=== PATIENT | male | born 1955 | race Caucasian/White ===

== ENCOUNTER 2018-06-01 09:21 | Inpatient (IN) | payer OTHER ==
[2018-06-01 10:32] LABS: ADD MAN DIFF? NO
[2018-06-01] MEDS: NITROGLYCERIN 2% 1 GM OINT PKT TD (10:34)
[2018-06-01] MEDS: ASPIRIN (EC) 81 MG TAB PO (10:34)
[2018-06-01] MEDS: ONDANSETRON 4 MG INJ IV ×3 (10:34→20:43)
[2018-06-01] MEDS: morphine 4 MG/ML VIAL IV ×2 (10:34→18:29)
[2018-06-01 10:41] LABS: BASOPHILS % 0.6 % (0.0-2.0); EOSINOPHILS # 0.1 10^3/ul (0.0-0.5); EOSINOPHILS % 1.8 % (0.0-7.0); HEMATOCRIT 46.5 % (42.0-52.0); HEMOGLOBIN 16.1 g/dl (14.0-18.0); LYMPHOCYTES % 43.5 % (15.0-51.0); MEAN CORPUSCULAR HEMOGLOBIN 32.9 pg (29.0-33.0); MEAN CORPUSCULAR HGB CONC 34.6 g/dl (32.0-37.0); MEAN CORPUSCULAR VOLUME 95.1 fl (82.0-101.0); MONOCYTE # 0.5 10^3/ul (0.3-0.9); MONOCYTES % 6.6 % (0.0-11.0); NEUTROPHIL # 3.2 10^3/ul (1.6-7.5); NEUTROPHILS % 47.2 % (39.0-77.0); PLATELET COUNT 282 10^3/UL (140-415); RED BLOOD COUNT 4.89 10^6/ul (4.70-6.10); RED CELL DISTRIBUTION WIDTH 11.9 % (11.5-14.5)
[2018-06-01 10:41] LABS: WHITE BLOOD COUNT 6.9 10^3/ul (4.8-10.8)
[2018-06-01 11:15] LABS: ANION GAP 10 (8-16); BLOOD UREA NITROGEN 15 mg/dl (7-20); CALCIUM 9.8 mg/dl (8.4-10.2); CARBON DIOXIDE 28 mmol/L (21-31); CHLORIDE 108 mmol/L (97-110); CREATININE 1.01 mg/dl (0.61-1.24); GLUCOSE 114 mg/dl (70-220); POTASSIUM 3.9 mmol/L (3.5-5.1); SODIUM 142 mmol/L (135-144)
[2018-06-01 11:33] LABS: TROPONIN-I 0.244 ng/ml (0.000-0.120)
[2018-06-01] MEDS: ACETAMINOPHEN 325 MG TAB PO ×2 (13:17→20:11)
[2018-06-01] MEDS: ENOXAPARIN 80 MG/0.8 ML SYG SC (13:18)
[2018-06-01] MEDS ORDERED: MIDAZOLAM 1 MG/ML 2 ML INJ (15:42)
[2018-06-01] MEDS ORDERED: VERAPAMIL 5 MG INJ (15:42)
[2018-06-01] MEDS ORDERED: LIDOCAINE 1% (MDV) 20 ML INJ (15:42)
[2018-06-01] MEDS ORDERED: SOD CHLORIDE 0.9% 500 ML (15:42)
[2018-06-01] MEDS ORDERED: IODIXANOL LOCM 50 ML BTL (15:42)
[2018-06-01] MEDS ORDERED: NITROGLYCERIN (IC) 100 MCG/ML INJ (15:42)
[2018-06-01] MEDS ORDERED: FENTAnyl 50 MCG/ML VIAL (15:42)
[2018-06-01] MEDS ORDERED: IODIXANOL LOCM 100 ML BTL (15:42)
[2018-06-01] MEDS ORDERED: HEPARIN 1000 UNITS/ML 10 ML INJ (15:42)
[2018-06-01] MEDS ORDERED: NACL 0.9% 3 ML SYG IV (16:00)
[2018-06-01] MEDS ORDERED: NITROGLYCERIN 50 MG/D5W (PMX) 250 ML IV (17:00)
[2018-06-01] MEDS: SOD CHLORIDE 0.9% 1,000 ML IV (17:16)
[2018-06-01 18:12] LABS: CREATINE KINASE 63 IU/L (23-200)
[2018-06-01 18:25] LABS: CK INDEX 1.6
[2018-06-01] MEDS: NITROGLYCERIN 50 MG/D5W (PMX) 250 ML IV (19:46)
[2018-06-01] MEDS: CEFAZOLIN 2 GM/50 ML (PMX) 50 ML IVPB (20:00)
[2018-06-01] MEDS: METOPROLOL 25 MG TAB PO (20:10)
[2018-06-01] MEDS: ATORVASTATIN 80 MG TAB PO (20:10)
[2018-06-01] MEDS ORDERED: ATORVASTATIN 40 MG TAB PO (21:00)
[2018-06-01 23:08] LABS: CREATINE KINASE 59 IU/L (23-200)
[2018-06-01 23:22] LABS: CK INDEX 1.5; CK-MB 0.89 ng/ml (0.0-2.4); TROPONIN-I 0.303 ng/ml (0.000-0.120)
[2018-06-02] MEDS: ONDANSETRON 4 MG INJ IV ×4 (01:36→21:06)
[2018-06-02 05:23] LABS: ADD MAN DIFF? NO
[2018-06-02 05:39] LABS: WHITE BLOOD COUNT 9.9 10^3/ul (4.8-10.8)
[2018-06-02 05:39] LABS: BASOPHILS % 0.3 % (0.0-2.0); EOSINOPHILS % 0.2 % (0.0-7.0); HEMATOCRIT 37.5 % (42.0-52.0); HEMOGLOBIN 13.1 g/dl (14.0-18.0); LYMPHOCYTES # 1.7 10^3/ul (0.8-2.9); LYMPHOCYTES % 16.8 % (15.0-51.0); MEAN CORPUSCULAR HEMOGLOBIN 33.2 pg (29.0-33.0); MEAN CORPUSCULAR HGB CONC 34.9 g/dl (32.0-37.0); MEAN CORPUSCULAR VOLUME 94.9 fl (82.0-101.0); MONOCYTE # 0.4 10^3/ul (0.3-0.9); NEUTROPHIL # 7.7 10^3/ul (1.6-7.5); NEUTROPHILS % 78.3 % (39.0-77.0); PLATELET COUNT 263 10^3/UL (140-415); RED BLOOD COUNT 3.95 10^6/ul (4.70-6.10); RED CELL DISTRIBUTION WIDTH 11.4 % (11.5-14.5)
[2018-06-02] MEDS: ACETAMINOPHEN 325 MG TAB PO ×4 (05:40→21:06)
[2018-06-02 06:01] LABS: CHOL/HDL RATIO 4.2 RATIO; HDL CHOLESTEROL 47 mg/dl (30-78); LDL CHOLESTEROL,CALCULATED 114 mg/dl; TRIGLYCERIDES 204 mg/dl (0-149)
[2018-06-02 06:01] LABS: CHOLESTEROL 202 mg/dl (100-200)
[2018-06-02 06:11] LABS: ANION GAP 9 (8-16); BLOOD UREA NITROGEN 14 mg/dl (7-20); CALCIUM 8.5 mg/dl (8.4-10.2); CARBON DIOXIDE 25 mmol/L (21-31); CHLORIDE 107 mmol/L (97-110); CREATININE 0.97 mg/dl (0.61-1.24); GLUCOSE 126 mg/dl (70-220); SODIUM 137 mmol/L (135-144)
[2018-06-02 07:23] LABS: MAGNESIUM 1.7 mg/dl (1.7-2.5)
[2018-06-02] MEDS: morphine 4 MG/ML VIAL IV (07:52)
[2018-06-02 09:28] LABS: HEMOGLOBIN A1C 5.4 % (0-5.9)
[2018-06-02] MEDS: ASPIRIN 81 MG TAB PO (10:17)
[2018-06-02] MEDS: METOPROLOL 25 MG TAB PO (10:17)
[2018-06-02] MEDS: ENOXAPARIN 40 MG/0.4 ML SYG SC ×2 (10:22→13:00)
[2018-06-02] MEDS: NITROGLYCERIN 50 MG/D5W (PMX) 250 ML IV (12:31)
[2018-06-02] MEDS ORDERED: METOPROLOL 25 MG TAB PO ×2 (12:32→14:00)
[2018-06-02] MEDS: MAGNESIUM SULFATE 2 GM/50 ML 50 ML IVPB (13:29)
[2018-06-02] MEDS: METOPROLOL 5 MG INJ IV ×2 (14:28→21:06)
[2018-06-02] MEDS: ALPRAZOLAM 0.25 MG TAB PO ×2 (17:39→23:35)
[2018-06-02] MEDS: ATORVASTATIN 80 MG TAB PO (21:06)
[2018-06-03] MEDS: METOPROLOL 5 MG INJ IV (02:12)
[2018-06-03] MEDS: NITROGLYCERIN 50 MG/D5W (PMX) 250 ML IV (02:13)
[2018-06-03 05:14] LABS: ADD MAN DIFF? NO; BASOPHILS % 0.2 % (0.0-2.0); EOSINOPHILS % 0.2 % (0.0-7.0); HEMOGLOBIN 11.8 g/dl (14.0-18.0); LYMPHOCYTES # 1.8 10^3/ul (0.8-2.9); LYMPHOCYTES % 18.7 % (15.0-51.0); MEAN CORPUSCULAR HEMOGLOBIN 33.3 pg (29.0-33.0); MEAN CORPUSCULAR HGB CONC 35.8 g/dl (32.0-37.0); MEAN CORPUSCULAR VOLUME 93.2 fl (82.0-101.0); MONOCYTE # 0.7 10^3/ul (0.3-0.9); MONOCYTES % 7.4 % (0.0-11.0); NEUTROPHIL # 6.9 10^3/ul (1.6-7.5); NUCLEATED RED BLOOD CELLS% 0.2 /100WBC (0.0-0.0); PLATELET COUNT 233 10^3/UL (140-415); RED BLOOD COUNT 3.54 10^6/ul (4.70-6.10); RED CELL DISTRIBUTION WIDTH 11.3 % (11.5-14.5)
[2018-06-03 05:14] LABS: WHITE BLOOD COUNT 9.5 10^3/ul (4.8-10.8)
[2018-06-03] MEDS: CEFAZOLIN 2 GM/50 ML (PMX) 50 ML IVPB (05:37)
[2018-06-03 05:49] LABS: BLOOD UREA NITROGEN 11 mg/dl (7-20); CALCIUM 8.3 mg/dl (8.4-10.2); CARBON DIOXIDE 28 mmol/L (21-31); CHLORIDE 103 mmol/L (97-110); CREATININE 0.83 mg/dl (0.61-1.24); GLUCOSE 121 mg/dl (70-220); MAGNESIUM 2.2 mg/dl (1.7-2.5); PHOSPHORUS 2.4 mg/dl (2.5-4.9); POTASSIUM 3.9 mmol/L (3.5-5.1); SODIUM 135 mmol/L (135-144)
[2018-06-03] MEDS ORDERED: THROMBIN 5000 UNIT VIAL (06:13)
[2018-06-03] MEDS ORDERED: GELATIN SIZE 100 SPONGE (06:13)
[2018-06-03] MEDS ORDERED: PAPAVERINE 60 MG INJ ×2 (06:14→08:25)
[2018-06-03] MEDS ORDERED: HEPARIN 1000 UNITS/ML 10 ML INJ ×3 (06:14→10:20)
[2018-06-03] MEDS ORDERED: VANCOMYCIN 1 GM INJ ×2 (06:15→08:25)
[2018-06-03] MEDS: HEPARIN 1000 UNITS/ML 10 ML INJ IRR (06:30)
[2018-06-03] MEDS: PAPAVERINE 60 MG INJ IRR (06:30)
[2018-06-03] MEDS: VANCOMYCIN 1 GM INJ IRR (06:30)
[2018-06-03] MEDS: HEPARIN (10000 UNITS/ML) 10,000 UNIT, MILRINONE LACTATE 10 MG in SOD CHLORIDE 0.9% 1,00... SC (07:00)
[2018-06-03] MEDS ORDERED: AMINOCAPROIC ACID 5 GM INJ (07:00)
[2018-06-03] MEDS: ASPIRIN 600 MG SUPP PR (07:00)
[2018-06-03] MEDS ORDERED: ROCURONIUM 50 MG INJ (07:00)
[2018-06-03] MEDS: MILRINONE LACTATE 2 MG in SOD CHLORIDE 0.9% 50 ML IV (07:00)
[2018-06-03] MEDS ORDERED: LIDOCAINE 2% (SDV) 5 ML INJ (07:00)
[2018-06-03] MEDS ORDERED: MIDAZOLAM 5 ML ×2 (07:06→07:07)
[2018-06-03] MEDS ORDERED: PROPOFOL 20 ML (07:07)
[2018-06-03] MEDS ORDERED: PROTAMINE 250 MG INJ (07:09)
[2018-06-03] MEDS ORDERED: CEFAZOLIN 1 GM INJ (07:12)
[2018-06-03] MEDS ORDERED: METOPROLOL 5 MG INJ IV (08:00)
[2018-06-03] MEDS ORDERED: PHENYLephrine 20MG IN 250 ML 250 ML IV (08:00)
[2018-06-03] MEDS ORDERED: NORepinephrine 8MG/250 ML (PMX 250 ML IV (08:00)
[2018-06-03] MEDS: ENOXAPARIN 40 MG/0.4 ML SYG SC (09:00)
[2018-06-03] MEDS: ASPIRIN 81 MG TAB PO (09:00)
[2018-06-03] MEDS ORDERED: ALBUMIN HUMAN 25% 200 ML (09:26)
[2018-06-03] MEDS ORDERED: NITROGLYCERIN 50 MG/D5W (PMX) 250 ML (09:26)
[2018-06-03] MEDS ORDERED: DOBUTamine/D5W 1 MG/ML DRIP 250 ML (09:26)
[2018-06-03] MEDS ORDERED: PROPOFOL 100 ML (09:26)
[2018-06-03] MEDS ORDERED: CA CHLORIDE 10% 10 ML SYRINGE (09:26)
[2018-06-03] MEDS ORDERED: NA BICARBONATE 8.4% 50 ML SYG ×2 (09:26→10:20)
[2018-06-03 09:43] LABS: ANION GAP 4 (5-13)
[2018-06-03] MEDS ORDERED: AMIODARONE 150 MG INJ ×2 (09:57→11:37)
[2018-06-03] MEDS ORDERED: ALBUMIN HUMAN 5% 250 ML (10:21)
[2018-06-03] MEDS ORDERED: NORepinephrine 4 MG INJ (10:25)
[2018-06-03] MEDS ORDERED: POTASSIUM CHLORIDE 100 ML (10:27)
[2018-06-03] MEDS ORDERED: MAGNESIUM SULFATE 1 GM/D5W 100 ML IVPB (10:30)
[2018-06-03] MEDS: PHENYLephrine 20MG IN 250 ML 250 ML IV (13:00)
[2018-06-03] MEDS: INSULIN HUMAN REGULAR 100 UNIT in SOD CHLORIDE 0.9% 99 ML IV (13:00)
[2018-06-03] MEDS: NORepinephrine 8MG/250 ML (PMX 250 ML IV (13:00)
[2018-06-03] MEDS: EPINEPHrine 4 MG in DEXTROSE 5% 246 ML IV (13:00)
[2018-06-03] MEDS ORDERED: MILRINONE LACTATE 100 ML (13:23)
[2018-06-03 13:27] LABS: ADD MAN DIFF? NO; BASOPHILS % 0.2 % (0.0-2.0); EOSINOPHILS % 0.2 % (0.0-7.0); LYMPHOCYTES # 1.7 10^3/ul (0.8-2.9); LYMPHOCYTES % 10.5 % (15.0-51.0); MEAN CORPUSCULAR HEMOGLOBIN 33.7 pg (29.0-33.0); MEAN CORPUSCULAR HGB CONC 34.5 g/dl (32.0-37.0); MEAN CORPUSCULAR VOLUME 97.6 fl (82.0-101.0); MEAN PLATELET VOLUME 9.1 fl (7.4-10.4); MONOCYTE # 1.2 10^3/ul (0.3-0.9); MONOCYTES % 7.6 % (0.0-11.0); PLATELET COUNT 137 10^3/UL (140-415); RED BLOOD COUNT 2.97 10^6/ul (4.70-6.10); RED CELL DISTRIBUTION WIDTH 11.8 % (11.5-14.5)
[2018-06-03] MEDS: ACCU-CHEK XX ×12 (13:30→23:56)
[2018-06-03] MEDS ORDERED: DEXTROSE 50% 50 ML SYRINGE IV ×2 (13:30)
[2018-06-03 13:46] LABS: ANION GAP 18 (5-13); BLOOD UREA NITROGEN 10 mg/dl (7-20); CALCIUM 9.6 mg/dl (8.4-10.2); CARBON DIOXIDE 17 mmol/L (21-31); CHLORIDE 109 mmol/L (97-110); CREATININE 0.86 mg/dl (0.61-1.24); GLUCOSE 219 mg/dl (70-220); MAGNESIUM 3.7 mg/dl (1.7-2.5); POTASSIUM 3.2 mmol/L (3.5-5.1); SODIUM 144 mmol/L (135-144)
[2018-06-03 13:48] LABS: INR 1.26; PT RATIO 1.3
[2018-06-03 13:49] LABS: PARTIAL THROMBOPLASTIN TIME 34.6 Sec (23.0-35.0)
[2018-06-03] MEDS: POTASSIUM CHLORIDE 40 MEQ, CALCIUM CHLORIDE 10% 1 GM in DEXTROSE 5%-0.225% NACL 1,000 ML IV (13:56)
[2018-06-03] MEDS: morphine 4 MG/ML VIAL IV (13:56)
[2018-06-03] MEDS: INSULIN HUMAN REGULAR 100 UNIT in SOD CHLORIDE 0.9% 99 ML IVPB (13:57)
[2018-06-03] MEDS: POTASSIUM CHLORIDE 50 ML IVPB ×3 (14:08→17:09)
[2018-06-03 14:11] LABS: AADO2 Arterial 366.2 mmHg (7.0-24.0); Arterial Base Excess -9.3 mmol/L (-3.0-3); Arterial Blood Gas Oxygen Sat 94.2 mmHG (95.0-98.0); Arterial COHb 0.1 % (0.0-3.0); Arterial Fraction of Oxyhgb 93.7 % (93.0-99.0); Arterial HCO3 18.1 mmol/L (22.0-26.0); Arterial MetHb 0.4 % (0.0-1.5); Arterial Total Hemglobin 11.7 g/dl (12.0-18.0); Arterial pCO2 45.3 mmhg (35-45); MODE VENT - AC; Site A-Line
[2018-06-03] MEDS: PROPOFOL 100 ML IV ×2 (15:07→19:21)
[2018-06-03] MEDS: DOBUTamine/D5W 1 MG/ML DRIP 250 ML IV (15:11)
[2018-06-03] MEDS ORDERED: morphine 2 MG INJ (15:13)
[2018-06-03] MEDS ORDERED: niCARdipine 25 MG in SOD CHLORIDE 0.9% 250 ML IV (15:30)
[2018-06-03] MEDS: morphine 2 MG INJ IV ×3 (15:59→23:57)
[2018-06-03] MEDS: ALBUMIN HUMAN 5% 250 ML IV (16:49)
[2018-06-03 18:00] LABS: AADO2 Arterial 261.3 mmHg (7.0-24.0); Arterial Base Excess -0.8 mmol/L (-3.0-3); Arterial Blood Gas Oxygen Sat 98.5 mmHG (95.0-98.0); Arterial COHb 0.3 % (0.0-3.0); Arterial Fraction of Oxyhgb 97.8 % (93.0-99.0); Arterial HCO3 23.9 mmol/L (22.0-26.0); Arterial MetHb 0.4 % (0.0-1.5); Arterial Total Hemglobin 10.3 g/dl (12.0-18.0); Arterial pCO2 39.4 mmhg (35-45); MODE VENT - AC; Site A-Line
[2018-06-03] MEDS ORDERED: [UNRECOGNIZED DRUG - OTHER] PO (18:30)
[2018-06-03] MEDS ORDERED: ACETAMINOPHEN WITH CODEINE PO (18:30)
[2018-06-03 18:47] LABS: ADD MAN DIFF? NO
[2018-06-03 18:51] LABS: WHITE BLOOD COUNT 9.1 10^3/ul (4.8-10.8)
[2018-06-03 18:51] LABS: ABNORMAL IP MESSAGE 1; BASOPHILS % 0.1 % (0.0-2.0); HEMATOCRIT 25.8 % (42.0-52.0); LYMPHOCYTES # 0.5 10^3/ul (0.8-2.9); LYMPHOCYTES % 5.9 % (15.0-51.0); MEAN CORPUSCULAR HEMOGLOBIN 33.1 pg (29.0-33.0); MEAN CORPUSCULAR HGB CONC 34.9 g/dl (32.0-37.0); MEAN CORPUSCULAR VOLUME 94.9 fl (82.0-101.0); MEAN PLATELET VOLUME 9.2 fl (7.4-10.4); MONOCYTE # 0.9 10^3/ul (0.3-0.9); MONOCYTES % 10.2 % (0.0-11.0); NEUTROPHIL # 7.6 10^3/ul (1.6-7.5); NEUTROPHILS % 83.4 % (39.0-77.0); PLATELET COUNT 135 10^3/UL (140-415); POSITIVE DIFF @See below; RED BLOOD COUNT 2.72 10^6/ul (4.70-6.10); RED CELL DISTRIBUTION WIDTH 11.8 % (11.5-14.5)
[2018-06-03 19:12] LABS: ANION GAP 7 (5-13); BLOOD UREA NITROGEN 12 mg/dl (7-20); CALCIUM 8.9 mg/dl (8.4-10.2); CARBON DIOXIDE 25 mmol/L (21-31); CHLORIDE 110 mmol/L (97-110); CREATININE 0.99 mg/dl (0.61-1.24); GLUCOSE 107 mg/dl (70-220); MAGNESIUM 2.6 mg/dl (1.7-2.5); POTASSIUM 4.6 mmol/L (3.5-5.1); SODIUM 142 mmol/L (135-144)
[2018-06-03 19:14] LABS: INR 1.19; PROTIME 15.3 Sec (11.9-14.9); PT RATIO 1.2
[2018-06-03 19:16] LABS: PARTIAL THROMBOPLASTIN TIME 45.8 Sec (23.0-35.0)
[2018-06-03 20:26] LABS: ADD MAN DIFF? NO
[2018-06-03 20:27] LABS: WHITE BLOOD COUNT 8.8 10^3/ul (4.8-10.8)
[2018-06-03 20:27] LABS: ABNORMAL IP MESSAGE 1; BASOPHILS % 0.1 % (0.0-2.0); HEMATOCRIT 25.4 % (42.0-52.0); LYMPHOCYTES # 0.6 10^3/ul (0.8-2.9); LYMPHOCYTES % 6.5 % (15.0-51.0); MEAN CORPUSCULAR HEMOGLOBIN 33.6 pg (29.0-33.0); MEAN CORPUSCULAR HGB CONC 35.4 g/dl (32.0-37.0); MEAN CORPUSCULAR VOLUME 94.8 fl (82.0-101.0); MEAN PLATELET VOLUME 9.5 fl (7.4-10.4); MONOCYTES % 11.3 % (0.0-11.0); NEUTROPHIL # 7.2 10^3/ul (1.6-7.5); NEUTROPHILS % 81.8 % (39.0-77.0); PLATELET COUNT 136 10^3/UL (140-415); POSITIVE DIFF @See below; RED BLOOD COUNT 2.68 10^6/ul (4.70-6.10); RED CELL DISTRIBUTION WIDTH 11.9 % (11.5-14.5)
[2018-06-03] MEDS: PANTOPRAZOLE 40 MG INJ IV (20:28)
[2018-06-03] MEDS: ATORVASTATIN 80 MG TAB PO (20:28)
[2018-06-03 20:50] LABS: ANION GAP 7 (5-13); BLOOD UREA NITROGEN 11 mg/dl (7-20); CARBON DIOXIDE 26 mmol/L (21-31); CHLORIDE 109 mmol/L (97-110); GLUCOSE 106 mg/dl (70-220); MAGNESIUM 2.6 mg/dl (1.7-2.5); POTASSIUM 4.6 mmol/L (3.5-5.1); SODIUM 142 mmol/L (135-144)
[2018-06-03 23:05] LABS: AADO2 Arterial 125.4 mmHg (7.0-24.0); Arterial Base Excess -1.6 mmol/L (-3.0-3); Arterial COHb 0.3 % (0.0-3.0); Arterial Fraction of Oxyhgb 97.4 % (93.0-99.0); Arterial HCO3 22.6 mmol/L (22.0-26.0); Arterial MetHb 0.3 % (0.0-1.5); Arterial Total Hemglobin 9.5 g/dl (12.0-18.0); Arterial pCO2 35.5 mmhg (35-45); Blood Gas PS 10; MODE VENT - CPAP; Site A-Line
[2018-06-04] MEDS: ACCU-CHEK XX ×6 (01:00→06:00)
[2018-06-04 01:37] LABS: ADD MAN DIFF? NO
[2018-06-04 01:41] LABS: WHITE BLOOD COUNT 8.8 10^3/ul (4.8-10.8)
[2018-06-04 01:41] LABS: BASOPHILS % 0.1 % (0.0-2.0); HEMATOCRIT 26.1 % (42.0-52.0); HEMOGLOBIN 8.9 g/dl (14.0-18.0); LYMPHOCYTES % 11.6 % (15.0-51.0); MEAN CORPUSCULAR HGB CONC 34.1 g/dl (32.0-37.0); MEAN CORPUSCULAR VOLUME 96.7 fl (82.0-101.0); MEAN PLATELET VOLUME 9.3 fl (7.4-10.4); MONOCYTE # 0.8 10^3/ul (0.3-0.9); MONOCYTES % 9.6 % (0.0-11.0); NEUTROPHIL # 6.9 10^3/ul (1.6-7.5); NEUTROPHILS % 78.5 % (39.0-77.0); PLATELET COUNT 137 10^3/UL (140-415); RED CELL DISTRIBUTION WIDTH 12.1 % (11.5-14.5)
[2018-06-04] MEDS: HYDROmorphONE 1 MG/ML SYG IV ×4 (02:01→19:14)
[2018-06-04 02:12] LABS: ANION GAP 5 (5-13); BLOOD UREA NITROGEN 13 mg/dl (7-20); CALCIUM 9.2 mg/dl (8.4-10.2); CARBON DIOXIDE 28 mmol/L (21-31); CHLORIDE 107 mmol/L (97-110); CREATININE 1.06 mg/dl (0.61-1.24); GLUCOSE 135 mg/dl (70-220); MAGNESIUM 2.4 mg/dl (1.7-2.5); POTASSIUM 4.6 mmol/L (3.5-5.1); SODIUM 140 mmol/L (135-144)
[2018-06-04] MEDS: DOBUTamine/D5W 1 MG/ML DRIP 250 ML IV (03:03)
[2018-06-04] MEDS: INSULIN HUMAN REGULAR 100 UNIT in SOD CHLORIDE 0.9% 99 ML IV (03:07)
[2018-06-04] MEDS: POTASSIUM CHLORIDE 40 MEQ, CALCIUM CHLORIDE 10% 1 GM in DEXTROSE 5%-0.225% NACL 1,000 ML IV ×2 (04:34→20:01)
[2018-06-04] MEDS: morphine 2 MG INJ IV ×2 (04:34→08:48)
[2018-06-04] MEDS: PANTOPRAZOLE 40 MG INJ IV ×2 (05:30→19:13)
[2018-06-04 06:28] LABS: AADO2 Arterial 111.2 mmHg (7.0-24.0); Arterial Base Excess -4.2 mmol/L (-3.0-3); Arterial Blood Gas Oxygen Sat 94.7 mmHG (95.0-98.0); Arterial COHb 0.3 % (0.0-3.0); Arterial Fraction of Oxyhgb 94.2 % (93.0-99.0); Arterial MetHb 0.2 % (0.0-1.5); Arterial Total Hemglobin 10.1 g/dl (12.0-18.0); Arterial pCO2 39.1 mmhg (35-45); MODE NASAL CANNULA; Site A-Line
[2018-06-04] MEDS: ACETAMINOPHEN 325 MG TAB PO (06:40)
[2018-06-04 07:00] LABS: ADD MAN DIFF? YES; HEMATOCRIT 27.6 % (42.0-52.0); HEMOGLOBIN 9.3 g/dl (14.0-18.0); MEAN CORPUSCULAR HEMOGLOBIN 33.2 pg (29.0-33.0); MEAN CORPUSCULAR HGB CONC 33.7 g/dl (32.0-37.0); MEAN CORPUSCULAR VOLUME 98.6 fl (82.0-101.0); MEAN PLATELET VOLUME 9.7 fl (7.4-10.4); PLATELET COUNT 175 10^3/UL (140-415); POSITIVE DIFF @See below; RED CELL DISTRIBUTION WIDTH 12.3 % (11.5-14.5)
[2018-06-04 07:00] LABS: WHITE BLOOD COUNT 11.6 10^3/ul (4.8-10.8)
[2018-06-04 07:13] LABS: INR 1.09; PROTIME 14.3 Sec (11.9-14.9); PT RATIO 1.1
[2018-06-04 07:25] LABS: ANION GAP 9 (5-13); BLOOD UREA NITROGEN 14 mg/dl (7-20); CALCIUM 8.9 mg/dl (8.4-10.2); CARBON DIOXIDE 25 mmol/L (21-31); CHLORIDE 106 mmol/L (97-110); CREATININE 1.04 mg/dl (0.61-1.24); GLUCOSE 132 mg/dl (70-220); MAGNESIUM 2.2 mg/dl (1.7-2.5); POTASSIUM 4.6 mmol/L (3.5-5.1); SODIUM 140 mmol/L (135-144)
[2018-06-04] MEDS: KETOROLAC 15 MG INJ IV ×2 (07:48→12:17)
[2018-06-04 08:00] LABS: ANISOCYTOSIS 1+ (0-0); BAND NEUTROPHILS #M 0.8 10^3/ul (0.0-0.6); BAND NEUTROPHILS % (M) 7 % (0-4); LYMPHOCYTES #M 1.6 10^3/ul (0.8-2.9); LYMPHOCYTES % (M) 14 % (15-51); MICROCYTOSIS 1+ (0-0); MONOCYTE #M 1.2 10^3/ul (0.3-0.9); MONOCYTES % (M) 11 % (0-11); PLATELET ESTIMATE NORMAL; SEGMENTED NEUTROPHILS (M) % 68 % (39-77); SMUDGE%M 2 % (0-0)
[2018-06-04] MEDS: ASPIRIN 81 MG TAB PO (08:41)
[2018-06-04] MEDS: ENOXAPARIN 40 MG/0.4 ML SYG SC (08:46)
[2018-06-04] MEDS: HYDROmorphONE 2 MG/ML SYG IV (08:50)
[2018-06-04] MEDS: FUROSEMIDE 20 MG INJ IV (10:49)
[2018-06-04] MEDS: PROPOFOL 100 ML IV (13:11)
[2018-06-04 14:03] LABS: ADD MAN DIFF? NO
[2018-06-04 14:06] LABS: BASOPHILS % 0.1 % (0.0-2.0); HEMATOCRIT 25.7 % (42.0-52.0); HEMOGLOBIN 8.6 g/dl (14.0-18.0); LYMPHOCYTES # 1.5 10^3/ul (0.8-2.9); LYMPHOCYTES % 11.7 % (15.0-51.0); MEAN CORPUSCULAR HEMOGLOBIN 33.2 pg (29.0-33.0); MEAN CORPUSCULAR HGB CONC 33.5 g/dl (32.0-37.0); MEAN CORPUSCULAR VOLUME 99.2 fl (82.0-101.0); MEAN PLATELET VOLUME 9.7 fl (7.4-10.4); MONOCYTE # 1.2 10^3/ul (0.3-0.9); MONOCYTES % 9.7 % (0.0-11.0); NEUTROPHILS % 78.2 % (39.0-77.0); PLATELET COUNT 163 10^3/UL (140-415); POSITIVE DIFF @See below; RED BLOOD COUNT 2.59 10^6/ul (4.70-6.10); RED CELL DISTRIBUTION WIDTH 12.3 % (11.5-14.5)
[2018-06-04 14:06] LABS: WHITE BLOOD COUNT 12.8 10^3/ul (4.8-10.8)
[2018-06-04 16:20] LABS: COLLAGEN/EPI 113 Secs. (51-198)
[2018-06-04 16:21] LABS: COLLAGEN/ADP 83 Secs. (40-147)
[2018-06-04 16:26] LABS: ANISOCYTOSIS 1+ (0-0); BAND NEUTROPHILS #M 1.5 10^3/ul (0.0-0.6); BAND NEUTROPHILS % (M) 12 % (0-4); BASOPHIL #M 0.1 10^3/ul (0.0-0.0); BASOPHILS % (M) 1 % (0-2); EOSINOPHILS % (M) 3 % (0-7); LYMPHOCYTES #M 2.1 10^3/ul (0.8-2.9); LYMPHOCYTES % (M) 17 % (15-51); MICROCYTOSIS 1+ (0-0); MONOCYTE #M 0.8 10^3/ul (0.3-0.9); MONOCYTES % (M) 7 % (0-11); MYELOCYTES #M 0.1 10^3/ul (0.0-0.0); MYELOCYTES % (M) 1 % (0-0); PLATELET ESTIMATE NORMAL; SEG NEUT #M 7.7 10^3/ul (1.6-7.5); SEGMENTED NEUTROPHILS (M) % 59 % (39-77); SMUDGE%M 7 % (0-0)
[2018-06-04] MEDS: ATORVASTATIN 80 MG TAB PO (21:06)
[2018-06-05] MEDS: HYDROmorphONE 1 MG/ML SYG IV (00:41)
[2018-06-05] MEDS: PROPOFOL 100 ML IV (03:00)
[2018-06-05 04:45] LABS: ADD MAN DIFF? NO
[2018-06-05 04:48] LABS: WHITE BLOOD COUNT 11.6 10^3/ul (4.8-10.8)
[2018-06-05 04:48] LABS: BASOPHILS % 0.2 % (0.0-2.0); EOSINOPHILS % 0.2 % (0.0-7.0); HEMATOCRIT 23.1 % (42.0-52.0); HEMOGLOBIN 7.8 g/dl (14.0-18.0); LYMPHOCYTES # 2.7 10^3/ul (0.8-2.9); LYMPHOCYTES % 23.2 % (15.0-51.0); MEAN CORPUSCULAR HEMOGLOBIN 32.9 pg (29.0-33.0); MEAN CORPUSCULAR HGB CONC 33.8 g/dl (32.0-37.0); MEAN CORPUSCULAR VOLUME 97.5 fl (82.0-101.0); MEAN PLATELET VOLUME 9.7 fl (7.4-10.4); MONOCYTE # 1.1 10^3/ul (0.3-0.9); MONOCYTES % 9.1 % (0.0-11.0); NEUTROPHIL # 7.8 10^3/ul (1.6-7.5); NEUTROPHILS % 66.9 % (39.0-77.0); PLATELET COUNT 161 10^3/UL (140-415); RED BLOOD COUNT 2.37 10^6/ul (4.70-6.10); RED CELL DISTRIBUTION WIDTH 11.9 % (11.5-14.5)
[2018-06-05 05:07] LABS: ANION GAP 9 (5-13); BLOOD UREA NITROGEN 18 mg/dl (7-20); CALCIUM 8.2 mg/dl (8.4-10.2); CARBON DIOXIDE 27 mmol/L (21-31); CHLORIDE 96 mmol/L (97-110); CREATININE 0.97 mg/dl (0.61-1.24); GLUCOSE 123 mg/dl (70-220); SODIUM 132 mmol/L (135-144)
[2018-06-05 05:20] LABS: POTASSIUM 4.5 mmol/L (3.5-5.1)
[2018-06-05] MEDS: PANTOPRAZOLE 40 MG INJ IV ×2 (05:26→18:22)
[2018-06-05] MEDS: HYDROmorphONE 2 MG/ML SYG IV ×3 (07:39→21:22)
[2018-06-05] MEDS: SENNA TAB PO (09:49)
[2018-06-05] MEDS: ASPIRIN 81 MG TAB PO (09:49)
[2018-06-05] MEDS: DOCUSATE SODIUM 100 MG CAP PO ×2 (09:49→21:03)
[2018-06-05] MEDS: ENOXAPARIN 40 MG/0.4 ML SYG SC (09:51)
[2018-06-05] MEDS: KETOROLAC 30 MG INJ IV (12:19)
[2018-06-05] MEDS ORDERED: KETOROLAC 30 MG INJ IV (12:30)
[2018-06-05] MEDS: ATORVASTATIN 80 MG TAB PO (21:03)
[2018-06-06] MEDS: HYDROmorphONE 1 MG/ML SYG IV ×6 (02:55→21:18)
[2018-06-06] MEDS: PANTOPRAZOLE 40 MG INJ IV ×2 (05:30→17:42)
[2018-06-06 05:55] LABS: ADD MAN DIFF? NO
[2018-06-06 05:58] LABS: WHITE BLOOD COUNT 10.4 10^3/ul (4.8-10.8)
[2018-06-06 05:58] LABS: BASOPHILS % 0.2 % (0.0-2.0); EOSINOPHILS # 0.1 10^3/ul (0.0-0.5); EOSINOPHILS % 1.1 % (0.0-7.0); HEMATOCRIT 21.7 % (42.0-52.0); HEMOGLOBIN 7.5 g/dl (14.0-18.0); LYMPHOCYTES # 2.1 10^3/ul (0.8-2.9); LYMPHOCYTES % 20.7 % (15.0-51.0); MEAN CORPUSCULAR HEMOGLOBIN 33.2 pg (29.0-33.0); MEAN CORPUSCULAR HGB CONC 34.6 g/dl (32.0-37.0); MEAN PLATELET VOLUME 9.3 fl (7.4-10.4); MONOCYTE # 0.9 10^3/ul (0.3-0.9); MONOCYTES % 8.8 % (0.0-11.0); NEUTROPHIL # 7.1 10^3/ul (1.6-7.5); NEUTROPHILS % 68.3 % (39.0-77.0); PLATELET COUNT 218 10^3/UL (140-415); RED BLOOD COUNT 2.26 10^6/ul (4.70-6.10)
[2018-06-06 06:54] LABS: ANION GAP 7 (5-13); BLOOD UREA NITROGEN 19 mg/dl (7-20); CALCIUM 8.3 mg/dl (8.4-10.2); CARBON DIOXIDE 29 mmol/L (21-31); CHLORIDE 93 mmol/L (97-110); CREATININE 0.85 mg/dl (0.61-1.24); GLUCOSE 131 mg/dl (70-220); POTASSIUM 4.5 mmol/L (3.5-5.1); SODIUM 129 mmol/L (135-144)
[2018-06-06 07:04] LABS: MAGNESIUM 2.1 mg/dl (1.7-2.5)
[2018-06-06] MEDS: ASPIRIN 81 MG TAB PO (08:16)
[2018-06-06] MEDS: SENNA TAB PO (08:17)
[2018-06-06] MEDS: DOCUSATE SODIUM 100 MG CAP PO ×2 (08:17→21:00)
[2018-06-06] MEDS: ENOXAPARIN 40 MG/0.4 ML SYG SC (08:31)
[2018-06-06] MEDS: METOPROLOL 25 MG TAB PO ×2 (11:27→21:14)
[2018-06-06] MEDS: SOD FERRIC GLUC COMPLX 125 MG in SOD CHLORIDE 0.9% 100 ML IVPB (17:42)
[2018-06-06] MEDS: ATORVASTATIN 80 MG TAB PO (21:14)
[2018-06-07 05:49] LABS: ADD MAN DIFF? NO
[2018-06-07 05:52] LABS: BASOPHILS % 0.2 % (0.0-2.0); EOSINOPHILS # 0.1 10^3/ul (0.0-0.5); EOSINOPHILS % 1.1 % (0.0-7.0); HEMOGLOBIN 7.4 g/dl (14.0-18.0); LYMPHOCYTES # 1.8 10^3/ul (0.8-2.9); LYMPHOCYTES % 19.2 % (15.0-51.0); MEAN CORPUSCULAR HEMOGLOBIN 32.6 pg (29.0-33.0); MEAN CORPUSCULAR HGB CONC 33.6 g/dl (32.0-37.0); MEAN CORPUSCULAR VOLUME 96.9 fl (82.0-101.0); MEAN PLATELET VOLUME 9.1 fl (7.4-10.4); MONOCYTES % 10.1 % (0.0-11.0); NEUTROPHIL # 6.5 10^3/ul (1.6-7.5); NEUTROPHILS % 68.7 % (39.0-77.0); PLATELET COUNT 282 10^3/UL (140-415); RED BLOOD COUNT 2.27 10^6/ul (4.70-6.10); RED CELL DISTRIBUTION WIDTH 12.3 % (11.5-14.5)
[2018-06-07 05:52] LABS: WHITE BLOOD COUNT 9.5 10^3/ul (4.8-10.8)
[2018-06-07] MEDS: PANTOPRAZOLE 40 MG INJ IV ×2 (06:00→06:21)
[2018-06-07 06:11] LABS: MAGNESIUM 2.3 mg/dl (1.7-2.5)
[2018-06-07 06:29] LABS: ANION GAP 10 (5-13); BLOOD UREA NITROGEN 17 mg/dl (7-20); CALCIUM 8.5 mg/dl (8.4-10.2); CARBON DIOXIDE 28 mmol/L (21-31); CHLORIDE 95 mmol/L (97-110); CREATININE 0.82 mg/dl (0.61-1.24); GLUCOSE 116 mg/dl (70-220); POTASSIUM 3.9 mmol/L (3.5-5.1); SODIUM 133 mmol/L (135-144)
[2018-06-07] MEDS: HYDROmorphONE 1 MG/ML SYG IV (07:04)
[2018-06-07] MEDS ORDERED: KETOROLAC 30 MG INJ IV (07:30)
[2018-06-07] MEDS: METOPROLOL 25 MG TAB PO ×2 (08:13→21:00)
[2018-06-07] MEDS: SENNA TAB PO (08:13)
[2018-06-07] MEDS: DOCUSATE SODIUM 100 MG CAP PO ×2 (08:14→21:00)
[2018-06-07] MEDS: ASPIRIN 81 MG TAB PO (08:14)
[2018-06-07] MEDS: ENOXAPARIN 40 MG/0.4 ML SYG SC (08:37)
[2018-06-07] MEDS ORDERED: HYDROCODONE/APAP (5/325) TAB PO (13:30)
[2018-06-07] MEDS: SOD FERRIC GLUC COMPLX 125 MG in SOD CHLORIDE 0.9% 100 ML IVPB (17:00)
[2018-06-07] MEDS: FUROSEMIDE 40 MG INJ IV ×2 (17:00→17:32)
[2018-06-07] MEDS ORDERED: PANTOPRAZOLE 40 MG INJ (17:29)
[2018-06-07] MEDS: FAMOTIDINE 20 MG TAB PO (21:00)
[2018-06-07] MEDS: ATORVASTATIN 80 MG TAB PO (21:00)
[2018-06-08] MEDS ORDERED: FUROSEMIDE 20 MG INJ IV (06:00)
== END 2018-06-07 23:42 | disposition left against medical advice (07) | DRG 233 ==
LOC: E/R 09:21 → TEL 06-05 19:57 → ICU 15:09
PROC: 4A023N7 Measurement of Cardiac Sampling and Pressure, Left Heart, Percutaneous Approach (ICD-10-PCS; 2018-06-01 15:00)
PROC: B211YZZ Fluoroscopy of Multiple Coronary Arteries using Other Contrast (ICD-10-PCS; 2018-06-01 15:00)
PROC: 021209W Bypass Coronary Artery, Three Arteries from Aorta with Autologous Venous Tissue, Open Approach (ICD-10-PCS; principal; 2018-06-01 15:34)
PROC: 02100Z9 Bypass Coronary Artery, One Artery from Left Internal Mammary, Open Approach (ICD-10-PCS; 2018-06-01 15:34)
PROC: 06BP4ZZ Excision of Right Saphenous Vein, Percutaneous Endoscopic Approach (ICD-10-PCS; 2018-06-01 15:34)
PROC: 02QA0ZZ Repair Heart, Open Approach (ICD-10-PCS; 2018-06-01 15:34)
PROC: 5A1221Z Performance of Cardiac Output, Continuous (ICD-10-PCS; 2018-06-01 15:34)
PROC: 5A2204Z Restoration of Cardiac Rhythm, Single (ICD-10-PCS; 2018-06-01 15:34)
DX: I21.4 Non-ST elevation (NSTEMI) myocardial infarction (principal); G92 Toxic encephalopathy; I50.33 Acute on chronic diastolic (congestive) heart failure; I49.01 Ventricular fibrillation; D62 Acute posthemorrhagic anemia; I97.710 Intraoperative cardiac arrest during cardiac surgery; I11.0 Hypertensive heart disease with heart failure; I25.10 Atherosclerotic heart disease of native coronary artery without angina pectoris; E78.5 Hyperlipidemia, unspecified; T40.2X5A Adverse effect of other opioids, initial encounter; Y92.230 Patient room in hospital as the place of occurrence of the external cause; Z79.82 Long term (current) use of aspirin; Z87.891 Personal history of nicotine dependence
CPT/HCPCS: 36415; 36600; 70450; 71045; 80048; 80061; 82550; 82553; 82803; 82962; 83036; 83735; 84100; 84484; 85025; 85576; 85610; 85730; 86850; 86900; 86901; 86920; 87081; 93005; 93306; 93312; 93320; 93325; 93458; 93880; 94002; 96372; 96374; 96375; 97110; 97116; 97162; 97530; 99291-25